=== PATIENT | male | born 1935 | race Caucasian/White ===

== ENCOUNTER 2023-11-14 00:52 | Emergency (ER) | payer MEDICARE, BC ==
[~2023-11-14] VITALS: Ht 182.9 cm; Wt 81.8 kg
[2023-11-14 01:50] VITALS: PULSE 87; RESP 19; O2SAT 97
[2023-11-14] MEDS: HALOPERIDOL LACTATE 5 MG/ML INJ VIAL IM ONE (01:57)
[2023-11-14 02:19] LABS: Basophils # (auto) 0 10 ^3/uL (0-0.2); Basophils % (auto) 0.4 % (0.0-2.0); Eosinophils # (auto) 0.1 10 ^3/uL (0-0.8); Eosinophils % (auto) 1.9 % (0.0-7.0); Hematocrit 35.6 % (41.0-53.0); Hemoglobin 12.2 g/dL (13.5-17.5); Lymphocytes % (auto) 15.5 % (10.0-50.0); Mean Corpuscular Hemoglobin 32.6 pg (28.0-32.0); Mean Corpuscular Hgb Conc. 34.4 g/dL (32.0-36.0); Mean Corpuscular Volume 94.9 fL (80.0-100.0); Monocytes # (auto) 0.5 10 ^3/uL (0-1.3); Monocytes % (auto) 8.7 % (0.0-12.0); Neutrophils # (auto) 4.6 10 ^3/uL (1.6-8.6); Neutrophils % (auto) 73.5 % (37.0-80.0); Nucleated Red Blood Cells % 0.1 %; Platelet Count (auto) 72 10^3/uL (140-450); Red Blood Cells 3.75 10^6/uL (4.5-5.90); Red Cell Distribution Width 13.7 % (11.8-14.3); White Blood Cell 6.3 10^3/uL (4.4-10.8)
[2023-11-14 02:24] LABS: Chloride 109 mmol/L (98-107); Potassium 3.7 mmol/L (3.5-5.1); Sodium 142 mmol/L (136-145)
[2023-11-14 02:25] LABS: Anion Gap 6 (5-15); Calcium 9.9 mg/dL (8.7-10.4); Carbon Dioxide 27 mmol/L (20-30)
[2023-11-14 02:30] LABS: BUN/Creatinine Ratio 16.4 (10.0-20.0); Blood Urea Nitrogen 20 mg/dL (9-23); Glucose 111 mg/dL (74-106)
[2023-11-14] MEDS: ONDANSETRON HCL 4 MG/2 ML VIAL IV ONE (02:50)
[2023-11-14] MEDS: TETANUS-DIPTH-ACEL PERTUSSIS 0.5ML SYR Tdap IM ONE (02:50)
[2023-11-14] MEDS: MORPHINE SULFATE 4 MG/ML SYR/VIAL IV ONE (02:51)
[2023-11-14 03:05] LABS: Platelet Estimate Decreased
[2023-11-14 03:06] LABS: Large Platelets FEW
[2023-11-14 05:12] VITALS: BP 143/93; PULSE 86; RESP 25; TEMP 98.2; O2SAT 91
== END 2023-11-14 05:22 | disposition short-term general hospital (02) ==
LOC: ER 00:52 → EDBD 00:52 → ER 05:22
DX: S01.01XA Laceration without foreign body of scalp, initial encounter (principal); R10.9 Unspecified abdominal pain; M25.572 Pain in left ankle and joints of left foot; M25.552 Pain in left hip; M25.511 Pain in right shoulder; I10 Essential (primary) hypertension; E78.5 Hyperlipidemia, unspecified; I48.91 Unspecified atrial fibrillation; G30.9 Alzheimer's disease, unspecified; F02.80 Dementia in other diseases classified elsewhere, unspecified severity, without behavioral disturbance, psychotic disturbance, mood disturbance, and anxiety; W18.39XA Other fall on same level, initial encounter; Y93.89 Activity, other specified; Y92.098 Other place in other non-institutional residence as the place of occurrence of the external cause; Y99.8 Other external cause status
CPT/HCPCS: 36415; 70450; 71045; 72125; 72170; 80048; 84484; 85025; 90471; 90715; 93005; 96372; 96374; 96375; 99285; J1630; J2270; J2405